=== PATIENT | female | born 1970 | race Caucasian/White ===

== ENCOUNTER 2020-09-29 15:55 | Emergency (ER) | payer OTHER ==
[~2020-09-29] VITALS: Ht 167.6 cm; Wt 76.2 kg
[2020-09-29] MEDS ORDERED: XANAX1 MG PO (16:08)
[2020-09-29] MEDS ORDERED: LISINOPRIL20 MG PO (16:08)
[2020-09-29 16:46] LABS: ABSOLUTE NEUTROPHILS 5.6 thou/uL (1.4-8.2); BASOPHILS 0.6 % (0.0-2.0); EOSINOPHILS 1.9 % (0.0-3.0); HEMATOCRIT 50.5 % (37.0-47.0); HEMOGLOBIN 17.3 gm/dL (12.0-15.0); LYMPHOCYTES 31.3 % (24.0-44.0); MCH 34.8 pg (26.0-34.0); MCHC 34.3 g/dL (28.0-37.0); MCV 101.4 fL (80.0-100.0); MONOCYTES 8.3 % (1.0-8.0); PLATELET COUNT 234 thou/uL (150-400); POLYS 57.9 % (36.0-66.0); RBC 4.98 mil/uL (4.20-5.00); RDW 14.1 % (10.5-14.5); WBC 9.6 thou/uL (4.0-11.0)
[2020-09-29 17:09] LABS: ALBUMIN 3.8 g/dL (3.4-5.0); CALCIUM 8.7 mg/dL (8.5-10.1); CREATININE 1.4 mg/dL (0.6-1.0); TOTAL BILIRUBIN 0.6 mg/dL (0.2-1.0); TOTAL PROTEIN 7.4 g/dL (6.4-8.2)
[2020-09-29 18:14] LABS: URINE BILIRUBIN NEGATIVE (Negative); URINE BLOOD 1+ (Negative); URINE COLOR YELLOW; URINE GLUCOSE-RANDOM* NEGATIVE (Negative); URINE KETONES NEGATIVE (Negative); URINE LEUKOCYTES-REFLEX NEGATIVE (Negative); URINE PROTEIN (DIPSTICK) TRACE (Negative); URINE SPECIFIC GRAVITY 1.025 (1.005-1.035)
[2020-09-29 18:17] LABS: URINE NITRITE-REFLEX POSITIVE (Negative); URINE UROBILINOGEN 0.21 E.U./dl (0.2-1.0)
[2020-09-29 18:28] LABS: URINE CLARITY CLEAR
[2020-09-29 18:29] LABS: SQUAMOUS >10 Many /LPF (0-3)
[2020-09-29 18:31] LABS: BACTERIA-REFLEX >30 Many /HPF (None Seen); URINE RBC 1-2 Rare /HPF (NONE SEEN)
[2020-09-29] MEDS ORDERED: ZOFRAN ODT4 MG PO (19:35)
[2020-09-29] MEDS ORDERED: FLAGYL500 M1 PO (19:35)
[2020-09-29] MEDS ORDERED: CIPRO500 M1 PO (19:35)
[2020-09-29 19:40] VITALS: BP 119/74
== END 2020-09-29 20:11 | disposition home or self-care (01) ==
LOC: ER 15:55
PROVIDERS: Nurse Practitioner Family
DX: K52.9 Noninfective gastroenteritis and colitis, unspecified (principal); D25.9 Leiomyoma of uterus, unspecified; I10 Essential (primary) hypertension